=== PATIENT | female | born 1995 | race African-American/Black ===

== ENCOUNTER 2020-10-21 09:30 | Emergency (ER) | payer MEDICAID ==
[~2020-10-21] VITALS: Ht 160 cm; Wt 51.5 kg
[2020-10-21] MEDS ORDERED: HYDROCODONE/ACETAMINOPHEN 5/325MG TABLET PO ONE (10:00)
[2020-10-21] MEDS ORDERED: ONDANSETRON 4MG ODT PO ONE (10:00)
[2020-10-21 10:08] VITALS: BP 128/77
[2020-10-21 11:18] LABS: *BARBITURATES SCREEN URINE NEGATIVE (NEGATIVE); *BENZODIAZEPINES SCREEN URINE NEGATIVE (NEGATIVE)
[2020-10-21 11:19] LABS: *AMPHETAMINES SCREEN URINE NEGATIVE (NEGATIVE); *COCAINE SCREEN URINE NEGATIVE (NEGATIVE); METHADONE URINE SCREEN NEGATIVE (NEGATIVE); OPIATES URINE SCREEN NEGATIVE (NEGATIVE)
[2020-10-21 11:21] LABS: PHENCYCLIDINE URINE SCREEN NEGATIVE (NEGATIVE)
[2020-10-21 11:24] LABS: CANNABINOID URINE SCREEN PRESUMTIVE POSITIVE (NEGATIVE)
== END 2020-10-21 12:25 | disposition home or self-care (01) ==
LOC: ER 09:30
DX: S00.83XA Contusion of other part of head, initial encounter (principal); S20.219A Contusion of unspecified front wall of thorax, initial encounter; M54.5 Low back pain; M54.6 Pain in thoracic spine; Y04.2XXA Assault by strike against or bumped into by another person, initial encounter; Y93.89 Activity, other specified; Y92.488 Other paved roadways as the place of occurrence of the external cause; F12.90 Cannabis use, unspecified, uncomplicated; I10 Essential (primary) hypertension
CPT/HCPCS: 70486; 71250; 72070; 72110; 80305; 81025; 99285; Q0162